=== PATIENT | male | born 1975 | race Two or more races ===

== ENCOUNTER 2021-09-01 13:30 | Outpatient (CLI) | payer OTHER | END 2021-09-01 23:59 | disposition home or self-care (01) | LOC: EDBD → LAB 13:30 | PROVIDERS: ATTEND Specialist | DX: Z01.812 Encounter for preprocedural laboratory examination (principal); Z20.822 Contact with and (suspected) exposure to COVID-19 | CPT/HCPCS: C9803; U0003 ==

== ENCOUNTER 2021-09-07 05:25 | Inpatient (IN) | payer OTHER ==
[~2021-09-07] VITALS: Ht 190.5 cm; Wt 144.2 kg
[~2021-09-07 05:25] MED LIST: ANESTHESIA TRAY IN PYXIS 1 EA TRAY MC ONE
[2021-09-07 06:00] VITALS: BP 141/92
--- NOTE | 2021-09-07 06:00 | NUR ---
PATIENT CAME FOR SURGERY TODAY, LEFT TOTAL KNEE ARTHROPLASTY. PATIENT IS A/O X4. NO S/S OF DISTRESS NOTED. NO COMPLAIN OF PAIN. NPO SINCE YESTERDAY. LEFT FOREARM IV INSERTED ON THE LEFT FOREARM.
--- NOTE | 2021-09-07 06:33 | NUR ---
ANESTHESIOLOGIST CAME AND SEEN THE PATIENT AND EXPLAINED TO THE PATIENT THE PROCEDURE, POST OP PAIN. PATIENT SIGNED THE CONSENT FOR ANESTHESIA AND ATTACHED TO THE CHART,PREOP CHECKLIST INITIATED AND ATTACHED TO THE CHART. INFORMED THE ANESTHESIOLOGIST RE: THE ON THE PATIENT'S LABEL IS NOT CORRECT PRIOR TO PATIENT SIGNED THE CONSENT. INFORMED THE PREOP RN IN THE OR THAT THE CONSENTS FOR PROCEDURE AND THE BLOOD TRANSFUSION WERE NOT SIGN BY THE PATIENT YET PAPERS ATTACHED TO THE CHART AND INFORMING THAT THE ON THE PATIENT'S LABEL IS NOT CORRECT.
[2021-09-07] MEDS ORDERED: FENTANYL PF 250MCG/5ML AMPUL ONE (06:39)
[2021-09-07] MEDS ORDERED: HYDROMORPHONE INJ 2 MG/ML DISP.SYRIN ONE (06:39)
[2021-09-07] MEDS ORDERED: MIDAZOLAM HCL 2 MG/2ML VIAL ONE (06:40)
[2021-09-07] MEDS ORDERED: ROCURONIUM BROMIDE 50 MG/5 ML ONE (06:40)
[2021-09-07] MEDS ORDERED: FAMOTIDINE/PF INJ 20 MG/2 ML VIAL IV ONE (06:40)
[2021-09-07] MEDS ORDERED: BUPIVACAINE 0.5 % PF 150 MG/30 ML VIAL ONE (06:50)
[2021-09-07] MEDS ORDERED: POLYMYXIN B SULFATE 500,000 UNITS ONE (06:50)
[2021-09-07] MEDS ORDERED: TRANEXAMIC ACID 3,000 MG in SODIUM CHLORIDE IRRIG SOLUTION 70 ML IR ONE (07:00)
[2021-09-07] MEDS ORDERED: CLONIDINE HCL 0.1 MG TABLET PO PRN (10:00)
[2021-09-07] MEDS ORDERED: ONDANSETRON HCL/PF 4 MG/2 ML VIAL IV PRN (10:00)
[2021-09-07] MEDS ORDERED: HYDROMORPHONE 1 MG/1 ML DISP.SYRIN SQ ONE (10:00)
[2021-09-07] MEDS ORDERED: MAG HYDROX/AL HYDROX/SIMETH 30 ML UDC PO PRN (10:00)
[2021-09-07] MEDS ORDERED: diphenhydrAMINE HCL 25 MG CAPSULE PO PRN (10:00)
[2021-09-07] MEDS ORDERED: MENTHOL/CETYLPYRD (CEPACOL) 1 LOZ LOZENGE PO PRN (10:00)
[2021-09-07] MEDS ORDERED: MAGNESIUM HYDROXIDE 30 ML UDC PO PRN (10:00)
--- NOTE | 2021-09-07 10:00 | NUR ---
MS RN NOTE PATIENT BACK FROM OR VIA BED. COMFORTMEASURES PROVIDED. PATIENT WITH ELASTIC BANDAGE ON LEFT LOWE EXTREMITY. NO COMPLAINT OF PAIN. WITH AT BEDSIDE. COMFORT MEASURES PROVIDED.
[2021-09-07] MEDS ORDERED: MENTHOL/CETYLPYRD (CEPACOL) 1 LOZ LOZENGE PO ONE (10:13)
[2021-09-07] MEDS: FAMOTIDINE (20 MG) 20 MG TABLET PO SCH ×2 (10:17→20:20)
[2021-09-07] MEDS ORDERED: ACETAMINOPHEN 325 MG TABLET PO PRN (10:30)
[2021-09-07] MEDS ORDERED: BISACODYL SUPP (10 MG) 10 MG/SUPP.RECT SUPP.RECT RC PRN (10:30)
[2021-09-07] MEDS: IV LR 1000 ML 1,000 ML IV PRN ×2 (11:31→20:28)
[2021-09-07] MEDS: HYDROMORPHONE 1 MG/1 ML DISP.SYRIN IM/IV/SC PRN ×3 (11:44→23:32)
[2021-09-07 12:00] VITALS: BP 136/60
[2021-09-07] MEDS ORDERED: oxyCODONE IR immediate release 5 MG PO ONE (12:15)
[2021-09-07] MEDS: HYDROMORPHONE 1 MG/1 ML DISP.SYRIN SQ PRN ×4 (13:44→20:20)
[2021-09-07] MEDS: ANCEF 1 GM/50 ML D5W IV SCH ×4 (15:16→22:46)
[2021-09-07 16:00] VITALS: BP 130/81
--- NOTE | 2021-09-07 16:00 | NUR ---
MS RN NOTE DILAUDID 1MG PULLED OUT FROM PYXIS BUT ONLY USED 0.5MG WHEN I REALIZED THAT THE PATIENT IS NOT DUE FOR THE 1MG YET. (1 MORE HOUR).
--- NOTE | 2021-09-07 16:56 | NUR ---
RT Instructed patient on how to use incentive spirometer.
[2021-09-07] MEDS: DOCUSATE SODIUM 100 MG CAPSULE PO SCH (17:26)
[2021-09-07] MEDS: oxyCODONE IR immediate release 5 MG PO PRN ×2 (17:27→21:45)
--- NOTE | 2021-09-07 18:00 | NUR ---
NOTE FOR PHARMACY I CALLED THE PHARMACY TO REPORT THE DILAUDID ([facility]) I PULLED OUT DILAUDID 1 MG WITH THE INTENTION TO GIVE DILAUDID 1MG IV. WHEN I GOT TO THE PATIENT, I SCANNED AND REALIZED THAT THE DILAUDID 1 GM IS NOT YET DUE. INSTEAD HE IS DUE FOR DILAUDID 0.5MG. I GAVE THE 0.5MG AND WAS LEFT WITH 0.5MG DILAUDID TO WASTE. WITH THE INTENTION OF CLEARING THE DILAUDID I PULLED OUT EARLIER. I PULLED OUT ANOTHER DILAUDID FROM THE 0.5MG SELECTION WHICH GAVE ME A 1MG DILAUDID. I THEN RETURNED THE 1MG TO THE OMNICELL. AFTER WHICH I CHECKED IF THE WASTE MEDICATION WAS SHOWING ON THE MACHINE BUT IT WAS NOT SHOWING ANYMORE. I CALLED THE PHARMACIST TO REPORT AND WAS ADVISED TO JUST WASTE IT IN THE COMPUTER (WHICH I DID) AND WRITE A NOTE.
--- NOTE | 2021-09-07 19:25 | NUR ---
MS RN NOTE ENDORSED PATIENT ALERT AND ORIENTED X 4 WITH ELASTIC BANDAGE ON LEFT LOWER EXTREMITIES. PAIN MEDICATIONS GIVEN ORDERED PRN. SEEN BY PT AND ABLE TO AMBULATE WITH ASSIST. CPM MACHINE DONE EARLIER AND ON 2ND CYCLE ONGOING. COMFORT MEASURES PROVIDED. SAFETY MEASURES PROVIDED. CALL LIGHT WITHIN REACH. ENDORSED ACCORDINGLY.
--- NOTE | 2021-09-07 19:25 | NUR ---
MS RN OPENING NOTES: RECEIVED PATIENT IN BED, ASLEEP, AROUSABLE, NO S/S OF DISTRESS NOTED. A/O X4. CALL LIGHT WITHIN REACH. BED IN LOWEST AND LOCKED POSITION. CALL LIGHT WITHIN REACH. WITH DRESSING CLEAN, DRY AND INTACT, WITH GOOD CMS ON THE LEFT FOOT. REMINDED TO USE THE IS, PATIENT PERFORMED WELL. PER PATIENT HE HAD 4HOURS OF CPM TODAY.
--- NOTE | 2021-09-07 19:52 | NUR ---
PATIENT ASLEEP AT THIS TIME. HOB ELEVATED.
[2021-09-07 20:00] VITALS: BP 140/91
[2021-09-07] MEDS ORDERED: ZOLPIDEM TARTRATE 5 MG TABLET PO PRN (22:00)
[2021-09-08] MEDS: HYDROMORPHONE 1 MG/1 ML DISP.SYRIN SQ PRN ×2 (02:58→06:33)
--- NOTE | 2021-09-08 06:39 | NUR ---
CPM STARTED PER PATIENT'S REQUEST, PATIENT STARTED AT 45 FLEXION.
[2021-09-08 06:51] LABS: HEMOGLOBIN 14.3 g/dL (13.5-17.5)
--- NOTE | 2021-09-08 07:55 | NUR ---
MS RN OPENING NOTES: RECEIVED PATIENT IN BED, AWAKE, A/O X4. PATIENT ON ROOM AIR, BREATHING EVEN AND UNLABORED. NO COMPLAINS OF PAIN AT THIS TIME. USES CPM MACHINE. DRESSING CLEAN, DRY AND INTACT. SAFETY PRECAUTIONS IN PLACE; BED IN LOW POSITION AND LOCKED, RAILS UP X2, CALL LIGHT WITHIN REACH. WILL CONTINUE TO MONITOR PATIENT.
[2021-09-08 08:00] VITALS: BP 93/55
[2021-09-08] MEDS: DOCUSATE SODIUM 100 MG CAPSULE PO SCH (08:06)
[2021-09-08] MEDS: FAMOTIDINE (20 MG) 20 MG TABLET PO SCH (08:06)
[2021-09-08] MEDS ORDERED: ASPIRIN 325 MG TABLET PO SCH (09:00)
[2021-09-08] MEDS: oxyCODONE IR immediate release 5 MG PO PRN (09:32)
--- NOTE | 2021-09-08 09:33 | NUR ---
MS RN NOTES JOYCE REMOVED PER MD ORDER ALSO PATIENT COMPLAINING OF PAIN 8 OUT OF 10 IN THE LEFT KNEE. PRN OXI 10MG ADMINISTERED PER MD ORDER. WILL REASSESS.
[2021-09-08] MEDS ORDERED: oxyCODONE IR immediate release 5 MG PO ONE (10:00)
[2021-09-08] MEDS: HYDROMORPHONE 1 MG/1 ML DISP.SYRIN IM/IV/SC PRN (11:52)
--- NOTE | 2021-09-08 12:50 | NUR ---
MS FOAM GUN OPERATOR NOTES PATIENT DISCHARGED HOME IN MEDICALLY STABLE CONDITION. PATIENT A/O X4 ABLE TO MAKE NEEDS KNOWN. ALL DISCHARGE PAPERWORK DONE AND SIGNED BY PATIENT. PHYSICIAN INSTRUCTIONS TEACHING PROVIDED; PATIENT VERBALIZED UNDERSTANDING AND STATES HE HAS A F/U APPOINTMENT SCHEDULED ALREADY. BELONGINGS ACCOUNTED FOR AND FORM SIGNED WELL. IV ACCESS REMOVED. PATIENT LEFT THE UNIT VIA WHEELCHAIR ACCOMPANIED BY AND RN. PATIENT LEFT IN A PRIVATE CAR.
== END 2021-09-08 12:30 | disposition home or self-care (01) | DRG 470 ==
LOC: DS 05:25 → MED 05:28
PROVIDERS: ADMIT Nurse Practitioner Acute Care; ATTEND Nurse Practitioner Acute Care
PROC: 0SRD0J9 Replacement of Left Knee Joint with Synthetic Substitute, Cemented, Open Approach (ICD-10-PCS; principal; 2021-09-07)
DX: M17.12 Unilateral primary osteoarthritis, left knee (principal); E11.9 Type 2 diabetes mellitus without complications; E66.9 Obesity, unspecified; Z68.39 Body mass index [BMI] 39.0-39.9, adult; Z98.890 Other specified postprocedural states; Y99.0 Civilian activity done for income or pay; X58.XXXA Exposure to other specified factors, initial encounter
CPT/HCPCS: 36415; 82962-TC; 85027-TC; 87081-TC; 94799-TC; 97116-TC; 97530-TC; 97760-TC; A4217; C1713; C1776; G0378; J0690; J1170; J2250; J2405; J2704; J2765; J3010; J3490; J7060; J7120